=== PATIENT | male | born 1955 | race Caucasian/White ===

== ENCOUNTER 2019-07-26 14:03 | Emergency (ER) | payer MEDICAID ==
[2019-07-26] MEDS: SOD CHLORIDE 0.9% 1,000 ML IV (16:44)
[2019-07-26] MEDS: THIAMINE 100 MG TAB PO (16:44)
[2019-07-26] MEDS: FOLIC ACID 1 MG TAB PO (16:44)
[2019-07-26] MEDS: ONDANSETRON 4 MG INJ IV (16:44)
[2019-07-26] MEDS: DEXTROSE 5%-0.45% NACL 500 ML BAG IV* (16:44)
== END 2019-07-26 19:57 | disposition home or self-care (01) ==
LOC: E/R 14:03
DX: F10.920 Alcohol use, unspecified with intoxication, uncomplicated (principal); D69.6 Thrombocytopenia, unspecified; R74.8 Abnormal levels of other serum enzymes; Z59.0 Homelessness; Z87.891 Personal history of nicotine dependence
CPT/HCPCS: 80053; 83690; 85025; 96374; 99284-25